=== PATIENT | female | born 1975 | race Caucasian/White ===

== ENCOUNTER → 2016-09-29 | Outpatient (CLI) | payer OTHER | LOC: CIMAGING 10:22 | DX: Z12.31 Encounter for screening mammogram for malignant neoplasm of breast (principal) | CPT/HCPCS: G0202 ==

== ENCOUNTER 2017-08-02 00:50 | Emergency (ER) | payer OTHER ==
--- NOTE | 2017-08-02 01:00 | EDPHY ---
H & P Time Seen by Provider: 08/02/17 00:58 HPI/ROS: CHIEF COMPLAINT: Upper abdominal discomfort with episode of palpitations last night and decreased exercise tolerance HISTORY OF PRESENT ILLNESS: 42-year-old female had noted some decreased exercise tolerance in the last month. She reports having surgery to remove in a abdominal wall hernia related to her hysterectomy surgery approximately 14 weeks ago. It was a same-day surgery injuries released that day. She did require DDAVP prior to the surgery as she has a mild von Willebrand's factor. Things gone uneventfully. She was at home rest for several days but was not absolute bedrest. During that entire time as well as concurrently this week she has not had any calf pain, calf swelling or leg swelling, or pleuritic chest pain. She does have a sense that she is unable to get a full breath but has no sense of trouble breathing per se. Last night she went to go to bed at around 10 o'clock. However she tossed and turned and was unable to fall asleep until 4:00 a.m.. During the 6 hr she has a sense of her heart racing consistently and her fit bit monitor showed 108. She also had episodes of sense of extra heartbeats but this was transient. She notes that she has had longstanding troubles with palpitations and a sense of extra heartbeats but not the sense of a fast heart rate such as that lasting for hours. There is nothing untoward in the evening that she could see as a precipitant. She did go to a work related function where she had some wine and as there was somewhat rich food she really did not eat much at all. Further during that 6 hr of fitful sleeping she had to 3 episodes of reflux sense of food contents in her throat. This is something that she has never really experienced before. There is no sense of heartburn per se. Today, her last meal was at 3:00 p.m.. She did not have any evening meal as she was performing at a [employer] at 7:30 p.m. And she finds it is best not to eat at that time. Beginning at 5:00 p.m. She started having a sense of burning discomfort in the upper abdomen between the umbilicus in the xiphoid. It is stated that same area right across both right and left without any predilection to side. This has been a perc continual sensation that goes through to the back. She has not been taking Advil or Aleve. She is not want to take any antacids thus had nothing in the household to try. She did not try any Pepto-Bismol for that matter either. The sensation and continued, even when she got back from the, the club at 10:30 p.m.. She was somewhat"wired"and so attempted to relax washing TV till 1230 in the morning - during that time she felt somewhat okay while laying down but any time she got up she felt sense of abdominal discomfort and fatigue. As the symptoms were somewhat very unusual for her in the last 48 hr she decided come in for evaluation. At no time was there any nausea vomiting or diaphoresis. P: Upper abdominal discomfort through to the back not worse with eating but is worse with sitting in the car. Seem to be precipitated by getting up and light chores the house Q: Achiness R: Radiation through to the back S: [id number] T: Onset at 5:00 p.m., 2 hr after eating Family history is positive for coronary disease in that her father had a bypass a 61, currently age 73. Brother and sisters do not have any known coronary disease, the sister was battling with uterine cancer Her perc score is 0, as her surgery was 3 and half months ago My SCORE HEART = 2 pending troponin H = Hx Mod 1 E = EKG Nl 0 A = Age <45 0 R Risk Factors = family history 1 T = Troponin pending REVIEW OF SYSTEMS: Constitutional: No fever, no chills. Eyes: No discharge ENT: No sore throat. Cardiovascular: No chest pain, no palpitations. Respiratory: No cough, shortness of breath, or wheezing. Gastrointestinal: No nausea vomiting or diarrhea. No abdominal pain. Genitourinary: No hematuria or frequency. Musculoskeletal: No back pain. Skin: No rashes. Neurological: No headache. 10 point ROS otherwise negative Source: Patient Exam Limitations: No limitations - Medical/Surgical History Hx Asthma: No Hx Chronic Respiratory Disease: No Hx Diabetes: No Hx Cardiac Disease: No Hx Renal Disease: No Hx Cirrhosis: No Hx Alcoholism: No Hx HIV/AIDS: No Hx Splenectomy or Spleen Trauma: No Other PMH: breast augmentation, IVF , uterine fibroid removal, von Willebrand' s. Migraine. Chronic back pain. leep procedure. SBO. hyst - Family History Significant Family History: Heart disease - Social History Smoking Status: Never smoked Alcohol Use: None Drug Use: None - Physical Exam Exam: General Appearance: Alert, no distress. Afebrile. Normal phonation. No respiratory distress. Eyes: Pupils equal and round no pallor or injection. No icterus ENT, Mouth: Mucous membranes moist Pharynx without erythema or exudate. TM Clear. Neck: No adenopathy. Supple. No JVD. Trachea in midline. Respiratory: There are no retractions, lungs are clear to auscultation. Chest wall: Nontender to palpation. No crepitus. Cardiovascular: Regular rate and rhythm. Abdomen: Soft, mildly tender in the upper abdomen, no masses, bowel sounds normal. Femoral pulses equal. No R or G. Neurological: Ox3. No motor weakness. Sensation intact. Gait nl. Skin: Warm and dry, no rashes. Musculoskeletal: No joint swelling. Extremities: No edema. Homans sign negative. No cords. Psychiatric: Normal affect. There is no agitation Constitutional: Initial Vital Signs Heart Rate 87 08/02/17 01:21 Respiratory Rate 16 08/02/17 01:21 Blood Pressure 135/84 H 08/02/17 01:21 O2 Sat (%) 98 08/02/17 01:21 O2 Delivery Mode Room Air Allergies/Adverse Reactions: No Known Allergies Allergy (Verified 08/02/17 01:21) Home Medications: Medication Instructions Recorded Flonase Nasal Reading 08/02/17 Medical Decision Making - Diagnostics EKG Interpretation: EKG: Interpreted by me contemporaneously. Rhythm: Normal sinus rhythm. Heart rate 77 QTc 431 QRS: normal STT segment: normal T Waves: Normal Q waves none Summary: Normal Ekg Imaging Results: Chest x-ray: Two view chest. Interpreted by me, contemporaneously. Films viewed by me on the PACS system. Normal mediastinum. Normal lung robledo. No effusions. Normal chest. ED Course/Re-evaluation: Attempts were made perform a a bedside ultrasound. Whereas, she was tender to palpation with the ultrasound probe in the right upper quadrant I was unable to visualize the gallbladder. The aorta, and kidney was normal. She continued to remain comfortable as long she was stationary in laying back. Laboratory evaluation include the following: Negative troponin, undetectable Normal WBC Normal H&H Normal LFTs Mildly elevated blood glucose, nonfasting specimen Normal lipase Normal chest x-ray, read by me Monitored here for an hour. No signs of high-grade arrhythmia Her heart score is 2. This would be low likelihood coronary disease and would implicate a outpatient workup and follow-up would be appropriate. Perc score is 0 as noted above. Thus, no further D-dimer testing necessary. 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 Thereby she will be on Pepcid maximal therapy at 20 mg twice daily pending follow-up. Other diagnostic considerations have included coronary disease, pulmonary embolus, ACS, cholecystitis, pancreatitis, aortic aneurysm, aortic dissection - all of which are extremely unlikely at this point in time Differential Diagnosis: Differential diagnosis includes but is not limited to the following: ACS, myocardial infarction, pneumothorax, pleurisy, pulmonary embolus, anxiety, muscle strain, Gastroenteritis, hepatitis, pancreatitis, cholecystitis, appendicitis, gastritis, mesenteric adenitis, food poisoning. - Data Points Laboratory Results: Laboratory Results 08/02/17 01:13 08/02/17 01:13 Medications Given: Discontinued Medications Famotidine (Pepcid) 20 mg PO EDNOW ONE Stop: 08/02/17 02:14 Last Admin: 08/02/17 02:28 Dose: 20 mg Departure - Departure Disposition: Home, Routine, Self-Care Clinical Impression: Heart palpitations Abdominal pain Qualifiers: Abdominal location: upper abdomen, unspecified Qualified Code(s): R10.10 - Upper abdominal pain, unspecified Condition: Good Instructions: Heart Palpitations (ED), Gastritis (ED) Additional Instructions: Take [id number] Pepcid 20 mg twice daily for 14 days. It is okay to take Pepto-Bismol as well as Tums antacids along with the Pepcid. Follow-up your family physician, in the next week. Return if symptoms are getting worse or new symptoms such as sweating or more chest symptoms No specific restrictions with respect your exercise Reflux precautions: No caffeine No nicotine Nothing to eat 3 hr before bed Referrals: Patient,NotPresent [Primary Care Provider] - As per Instructions
[2017-08-02 01:42] LABS: PLATELET COUNT 249 10^3/uL (150-400)
[2017-08-02] MEDS ORDERED: FAMOTIDINE 20 MG TAB PO ONE (02:13)
[2017-08-02 02:40] VITALS: BP 104/66; PULSE 80; RESP 14; O2SAT 95
== END 2017-08-02 02:38 | disposition home or self-care (01) ==
LOC: CED 00:50
DX: R10.10 Upper abdominal pain, unspecified (principal); R00.2 Palpitations; Z90.710 Acquired absence of both cervix and uterus
CPT/HCPCS: 71046-PO; 80048-PO; 80076-PO; 83690-PO; 83735-PO; 84484-PO; 85025-PO

== ENCOUNTER 2017-11-09 11:46 | Emergency (ER) | payer OTHER ==
[2017-11-09] MEDS ORDERED: NS 1,000 ML IV ONE (13:29)
--- NOTE | 2017-11-09 13:34 | EDPHY ---
H & P Time Seen by Provider: 11/09/17 12:51 HPI/ROS: HPI Rectal bleeding. 42-year-old female by private vehicle. This patient reports that she was running the [place] run. She had about a mild ago when she felt a sudden urge to defecate. She reports that this came on suddenly and very strongly. She reports that she then had a episode of grossly bloody diarrhea which she describes as about to cup fulls. She reports that she then felt better but told medical staff at the event about this was instructed to come to the emergency department. She had 1 more loose stool just prior to coming to the emergency department and stated that that was clearing and there was a small amount of blood but not nearly as much as the initial episode. She denies any associated rectal pain. No abdominal pain. She felt fine last night. Denies any foreign travel. No camping. No change in diet. No ill contacts. She has not had this happen to her in the past. She does have a history of mild von Willebrand's. ROS: Constitutional: No fever, no chills. No weakness. Eyes: No discharge. No changes in vision. ENT: No sore throat. No nasal congestion or rhinorrhea. Respiratory: No cough. No shortness of breath. Cardiac: No chest pain, no palpitations. Gastrointestinal: No abdominal pain, no vomiting, as above. Genitourinary: No hematuria. No dysuria or increased frequency with urination. Musculoskeletal: No back pain. No neck pain. No myalgias or arthralgias. Skin: No rashes. Neurological: No headache. No focal weakness or altered sensation. Past medical history: Hysterectomy, von Willebrand's disease she does not know the type but states that it is mild, migraine headaches, small-bowel obstruction , breast augmentation. Social history: Nonsmoker. Very physically active. Denies alcohol. Here with her son. Physical Exam: General Appearance: Alert, no distress. Thin and fit. This patient is responding to questions appropriately and in full sentences. This patient appears well-hydrated and well-nourished. Eyes: Pupils equal and round no pallor or injection. No lid edema, erythema or injection. Respiratory: There are no retractions, lungs are clear to auscultation with good air movement bilaterally. Cardiovascular: Regular rate and rhythm. No murmur. Gastrointestinal: Abdomen is soft and nontender, no masses, bowel sounds normal. No focal tenderness at McBurney's point. No Obregon sign. Rectal exam: No gross blood. No external hemorrhoids. No obvious vaginal bleeding. Neurological: Motor sensory function is grossly intact. Cranial nerves are normal. Gait is normal. Skin: Warm and dry, no rashes. Musculoskeletal: Neck is supple and nontender. Extremities are symmetrical. All joints range without pain or impingement. Psychiatric: No agitation. No depression. Database: EKG: Imaging: Procedures: Emergency department course: Vital signs reviewed. Blood pressure is 93/62. Vital signs otherwise normal. However given her stature and her level of fitness I believe this blood pressure is her baseline. We discussed the possible causes of her bloody diarrhea. She elects to have blood drawn. We will evaluate a CBC and her coagulation profile. 2:35 p.m., patient re-evaluated. Resting comfortably. Vital signs are normal. She has had no further rectal bleeding. At this time she feels comfortable going home and is requesting discharge. Her blood work is normal. Results discussed with her. I feel she is safe for discharge. She lives near the hospital and can easily return if needed. She will follow up with her primary care physician for re-evaluation on Thursday or Thursday of this week. She can be referred to a manager assembly through her primary care physician for colonoscopy. Return to emergency department precautions were thoroughly reviewed with her. All of her questions were answered. She was discharged from the emergency department in good condition. Differential Diagnosis: The differential diagnosis on this patient includes but is not limited to diverticulosis, entero hemorrhagic E coli, internal hemorrhoids, stressed induced diarrhea, bleeding colonic polyp. This represents a partial list of diagnoses considered. These considerations are based on history, physical exam , past history, reassessment and diagnostic testing. Smoking Status: Never smoked Constitutional: Initial Vital Signs Temperature (C) 36.9 C 11/09/17 11:51 Heart Rate 87 11/09/17 11:51 Respiratory Rate 16 11/09/17 11:51 Blood Pressure 93/62 L 11/09/17 11:51 O2 Sat (%) 96 11/09/17 11:51 O2 Delivery Mode Room Air Allergies/Adverse Reactions: No Known Allergies Allergy (Verified 11/09/17 11:51) Medical Decision Making - Data Points Laboratory Results: Laboratory Results 11/09/17 13:50 11/09/17 11/09/17 13:50 13:50 WBC 11.06 10^3/uL H 10^3/uL (3.80-9.50) RBC 4.30 10^6/uL 10^6/uL (4.18-5.33) Hgb 13.6 g/dL g/dL (12.6-16.3) Hct 39.9 % % (38.0-47.0) MCV 92.8 fL fL (81.5-99.8) MCH 31.6 pg pg (27.9-34.1) MCHC 34.1 g/dL g/dL (32.4-36.7) RDW 12.9 % % (11.5-15.2) Plt Count 271 10^3/uL 10^3/uL (150-400) MPV 9.5 fL fL (8.7-11.7) Neut % (Auto) 81.7 % H % (39.3-74.2) Lymph % (Auto) 12.7 % L % (15.0-45.0) Karnes % (Auto) 4.8 % % (4.5-13.0) Eos % (Auto) 0.1 % L % (0.6-7.6) Baso % (Auto) 0.4 % % (0.3-1.7) Nucleat RBC Rel Count 0.0 % % (0.0-0.2) Absolute Neuts (auto) 9.05 10^3/uL H 10^3/uL (1.70-6.50) Absolute Lymphs (auto) 1.40 10^3/uL 10^3/uL (1.00-3.00) Absolute Monos (auto) 0.53 10^3/uL 10^3/uL (0.30-0.80) Absolute Eos (auto) 0.01 10^3/uL L 10^3/uL (0.03-0.40) Absolute Basos (auto) 0.04 10^3/uL 10^3/uL (0.02-0.10) Absolute Nucleated RBC 0.00 10^3/uL 10^3/uL (0-0.01) Immature Gran % 0.3 % % (0.0-1.1) Immature Gran # 0.03 10^3/uL 10^3/uL (0.00-0.10) PT 14.7 SEC SEC (12.0-15.0) INR 1.13 (0.83-1.16) APTT 29.5 SEC SEC (23.0-38.0) Medications Given: Discontinued Medications Sodium Chloride (Ns) 1,000 mls @ 0 mls/hr IV EDNOW ONE; Wide Open PRN Reason: Protocol Stop: 11/09/17 13:30 Last Admin: 11/09/17 13:52 Dose: 1,000 mls Departure - Departure Disposition: Home, Routine, Self-Care Clinical Impression: Bloody diarrhea Condition: Good Instructions: Rectal Bleeding (ED), Acute Diarrhea (ED) Additional Instructions: Read and follow provided instructions. Follow-up with your primary care physician on Thursday or Thursday of this week for re-evaluation as discussed. You can be referred to a manager assembly for colonoscopy through your primary care physician. I have also provided you with our on-call manager assembly as a referral. Return to the emergency department for return of rectal bleeding, lightheadedness, weakness, abdominal pain or other serious concerns. Referrals: ADRIANA AMADOR [Primary Care Provider] - As per Instructions Марина Dill MD [Medical Doctor] - As per Instructions
[2017-11-09 14:02] LABS: PLATELET COUNT 271 10^3/uL (150-400)
[2017-11-09 14:10] LABS: INR 1.13 (0.83-1.16); PROTIME(PATIENT) 14.7 SEC (12.0-15.0)
[2017-11-09 14:55] VITALS: BP 106/60
== END 2017-11-09 14:54 | disposition home or self-care (01) ==
DX: R19.7 Diarrhea, unspecified (principal); E86.9 Volume depletion, unspecified

== ENCOUNTER 2018-10-26 14:17 | Emergency (ER) | payer MEDICAID, OTHER ==
[2018-10-26] MEDS ORDERED: IBUPROFEN 600 MG TAB PO ONE (14:29)
--- NOTE | 2018-10-26 14:35 | EDPHY ---
H & P Time Seen by Provider: 10/26/18 14:27 HPI/ROS: HPI Right ankle injury. 43-year-old female by private vehicle. This patient reports that this morning at 8:00 a.m. she was trail running when she awkwardly rolled and inverted her right foot. She complains of right ankle pain mostly over the area of the lateral malleolus radiating down into her calcaneal area. She is able to put weight on it but with some discomfort. She denies any other injury or complaint. ROS: Constitutional: No fever, no chills. No weakness. Musculoskeletal: No back pain. No neck pain. As above. No other extremity pain. Skin: No rashes. No lacerations or abrasions. Neurological: No focal weakness or altered sensation. Past medical history: No significant past medical history. Social history: Nonsmoker. She is here by herself. No alcohol. Physical Exam: General Appearance: Alert, no distress. This patient is responding to questions appropriately and in full sentences. This patient appears well- hydrated and well-nourished. Eyes: Pupils equal and round no pallor or injection. No lid edema, erythema or injection. Right foot and ankle exam: She does have some mild diffuse tenderness on palpation over the lateral malleolus. There is no significant ecchymosis, swelling/edema noted on inspection of this area. No bony step-off or deformity noted on palpation. The bony aspects of the foot are nontender on palpation. There is no ecchymosis noted on inspection of the foot. No tenderness on palpation of the proximal fibula. The right foot and lower extremity is neurovascularly intact. Neurological: Motor sensory function is grossly intact. Cranial nerves are normal. Skin: Warm and dry, no rashes. Extremities are symmetrical. All joints range without pain or impingement except the right ankle as noted. Psychiatric: No agitation. No depression. Database: EKG: Imaging: Right foot and ankle x-ray series: Negative for fracture, subluxation, dislocation. Interpreted by me. Procedures: Emergency department course: Triage vital signs reviewed. After my initial evaluation the patient was given 600 mg of ibuprofen. She will be sent for x-rays of the right foot and ankle. Her presentation is consistent with a right lateral ankle sprain. 2:50 p.m., the patient was re-evaluated, results of x-rays discussed with her. Diagnosis of right ankle sprain discussed. She will be fitted with an orthopedic boot. I have instructed her on weight-bearing as tolerated only. She declines crutches at this time. I discussed follow-up through her primary care physician or an weapons specialist in 2-3 days for re-evaluation. Ibuprofen dosing for pain control was discussed. Return to emergency department precautions thoroughly reviewed. All of her questions were answered. She was discharged from the emergency department in good condition. Differential Diagnosis: The differential diagnosis on this patient includes but is not limited to right lateral ankle sprain. Fracture, dislocation involving the right foot or right ankle unlikely. This represents a partial list of diagnoses considered. These considerations are based on history, physical exam, past history, reassessment and diagnostic testing. Smoking Status: Never smoked Constitutional: Initial Vital Signs Temperature (C) 36.9 C 10/26/18 14:29 Heart Rate 82 10/26/18 14:29 Respiratory Rate 16 10/26/18 14:29 O2 Sat (%) 98 10/26/18 14:29 O2 Delivery Mode Room Air Allergies/Adverse Reactions: No Known Allergies Allergy (Verified 10/26/18 14:28) Home Medications: Medication Instructions Recorded NK [No Known Home Meds] 10/26/18 Medical Decision Making - Data Points Medications Given: Discontinued Medications Ibuprofen (Motrin) 600 mg PO EDNOW ONE Stop: 10/26/18 14:30 Last Admin: 10/26/18 14:37 Dose: 600 mg Departure - Departure Disposition: Home, Routine, Self-Care Clinical Impression: Right ankle sprain Condition: Good Instructions: Ankle Sprain (ED) Additional Instructions: Read and follow provided instructions. Follow-up with your primary care physician or weapons specialist in 2-3 days for re-evaluation of your right ankle and foot. Keep orthopedic boot in place when ambulating as discussed. Weightbear as tolerated. Ibuprofen dosin mg every 6 hours with meals for the next 3 days only. Take only as needed for pain. Return to the emergency department for worsening pain, swelling, discoloration, loss of sensation or other serious concerns. Referrals: Kelechi Saucedo MD [Medical Doctor] - As per Instructions
== END 2018-10-26 15:00 | disposition home or self-care (01) ==
LOC: CED 14:17
DX: S93.401A Sprain of unspecified ligament of right ankle, initial encounter (principal); X50.1XXA Overexertion from prolonged static or awkward postures, initial encounter; Y93.02 Activity, running
CPT/HCPCS: 73610-PO; 73630-PO; 99283-ER; L4386-ER